=== PATIENT | female | born 1945 | race Caucasian/White ===

== ENCOUNTER 2023-07-26 21:32 | Inpatient (IN) | payer MEDICARE, OTHER ==
[2023-07-26 22:10] LABS: BASOPHILS PERCENT AUTO 0.1 % (0.2-1.2); EOSINOPHILS PERCENT AUTO 0.3 % (0.0-4.0); IMMATURE GRAN ABSOLUTE AUTO 0.01 x10^3/uL (0.00-0.07); LYMPHOCYTES ABSOLUTE AUTO 0.6 x10^3/uL (1.0-4.8); LYMPHOCYTES PERCENT AUTO 6.9 % (25.0-50.0); MEAN CORPUSCULAR HGB CONC 32.5 g/dL (32.0-36.0); MEAN CORPUSCULAR VOLUME 92.2 fL (78.0-93.0); MONOCYTES ABSOLUTE AUTO 0.5 x10^3/uL (0.0-0.8); MONOCYTES PERCENT AUTO 4.8 % (2.0-11.0); NEUTROPHILS ABSOLUTE AUTO 8.2 x10^3/uL (1.8-7.7); NEUTROPHILS PERCENT AUTO 87.8 % (50.0-80.0); PLATELET COUNT,PLT 220 x10^3/uL (130-400); RED BLOOD CELL COUNT 4.34 x10^6/uL (4.00-5.50); WHITE BLOOD CELL COUNT,WBC 9.3 x10^3/uL (4.0-10.0)
[2023-07-26 22:56] LABS: A/G RATIO 0.85; ALANINE AMINOTRANSFERASE,ALT 24 U/L (14-59); ALBUMIN 3.5 g/dL (3.4-5.0); ALKALINE PHOSPHATASE 80 U/L (46-116); ASPARTATE AMNIOTRANSFERASE,AST 19 U/L (15-37); BILIRUBIN TOTAL 1.4 mg/dL (0.2-1.0); BLOOD UREA NITROGEN,BUN 14 mg/dL (7-18); C-REACTIVE PROTEIN 2.95 mg/dL (<=0.50); CARBON DIOXIDE,CO2 27 mmol/L (21-32); CHLORIDE,CL 104 mmol/L (98-107); CREATININE 0.9 mg/dL (0.55-1.02); GLUCOSE RANDOM 154 mg/dL (70-99); POTASSIUM,K 4.2 mmol/L (3.5-5.1); PRO B-TYPE NATRIUR PEPT,BNPPRO 6338 pg/mL (<=450); PROTEIN TOTAL,TP 7.6 g/dL (6.4-8.2); SODIUM,NA 141 mmol/L (136-145)
[2023-07-26 22:59] LABS: ANION GAP 14.2 mmol/L (5-15); ESTIMATED GFR 67 mL/min (>=60)
[2023-07-26] MEDS ORDERED: Diltiazem 50 MG/10 ML SDV IVPUSH ONE (23:06)
[2023-07-26] MEDS ORDERED: Furosemide 40 MG/4 ML VIAL IV ONE (23:07)
[2023-07-26 23:12] LABS: APPEARANCE,URINE CLEAR (CLEAR); BILIRUBIN,URINE NEGATIVE (NEGATIVE); COLOR,URINE YELLOW (YELLOW); GLUCOSE,URINE NEGATIVE (NEGATIVE); KETONES,URINE NEGATIVE (NEGATIVE); LEUKOCYTE ESTERASE,URINE NEGATIVE (NEGATIVE); NITRITE,URINE NEGATIVE (NEGATIVE); OCCULT BLOOD,URINE SMALL (NEGATIVE); PROTEIN,URINE TRACE mg/dL (NEGATIVE); UROBILINOGEN,URINE 0.2 EU/dL (0.2)
[2023-07-26 23:21] LABS: BACTERIA,URINE NOT SEEN /HPF (NOT SEEN); HYALINE CASTS,URINE RARE; MUCUS,URINE NOT SEEN /LPF (NOT SEEN); SQUAMOUS EPITHELIAL CELLS,UR RARE /HPF (NOT SEEN); WBC,URINE 0-5 /HPF (NOT SEEN)
[2023-07-27] MEDS ORDERED: Diltiazem 125 MG in Sodium Chloride 0.9% 100 ML IV SCH (01:00)
[2023-07-27] MEDS ORDERED: Digoxin 500 MCG/2 ML Amp IVPUSH ONE (01:40)
[2023-07-27] MEDS ORDERED: Sodium Chloride 0.9% 10 ML Syringe FLUSH PRN (01:52)
[2023-07-27] MEDS: Albuterol/Ipratropium 3.0-0.5 MG/3 ML Neb Soln NEB SCH ×5 (04:27→19:02)
[2023-07-27] MEDS ORDERED: Sennosides 8.6 MG Tab PO PRN (07:37)
[2023-07-27] MEDS: Budesonide 0.5 MG/2 ML Neb Susp NEB SCH ×2 (08:02→21:50)
[2023-07-27] MEDS ORDERED: Furosemide 20 MG/2 ML VIAL IV ONE (08:30)
[2023-07-27 08:58] LABS: ANION GAP 12.6 mmol/L (5-15); CALCIUM 8.7 mg/dL (8.5-10.1); CREATININE 0.8 mg/dL (0.55-1.02); EST CRCL DRUG DOSING (CG) 50.26 mL/min; POTASSIUM,K 3.6 mmol/L (3.5-5.1)
[2023-07-27] MEDS ORDERED: PREVAGEN 20 MG PO SCH (09:00)
[2023-07-27] MEDS ORDERED: Metoprolol Succinate 50 MG Tab.ER PO SCH (09:00)
[2023-07-27] MEDS: Digoxin 125 MCG Tab PO SCH (09:53)
[2023-07-27] MEDS: Citalopram 20 MG Tab PO SCH (09:54)
[2023-07-27] MEDS: Apixaban 2.5 MG Tab PO SCH ×2 (09:54→21:50)
[2023-07-27] MEDS: metFORMIN 500 MG Tab PO SCH (09:54)
[2023-07-27] MEDS: Cholecalciferol (Vitamin D3) 25 MCG Tab PO SCH (09:55)
[2023-07-27] MEDS: [UNRECOGNIZED DRUG - OTHER] PO SCH (09:56)
[2023-07-27] MEDS: Metoprolol Succinate 50 MG Tab.ER PO SCH (09:57)
[2023-07-27] MEDS: Magnesium Oxide 400 MG Tab PO SCH ×2 (09:57→21:50)
[2023-07-27] MEDS: atorvaSTATin 10 MG Tab PO SCH (09:57)
[2023-07-27] MEDS: glipiZIDE 5 MG Tab PO SCH (09:58)
[2023-07-27] MEDS: Aspirin 81 MG Tab.EC PO SCH (09:58)
[2023-07-27] MEDS ORDERED: SEMAGLUTIDE 0.25 MG/0.4 ML SQ SCH (10:00)
[2023-07-27] MEDS ORDERED: Albuterol/Ipratropium 3.0-0.5 MG/3 ML Neb Soln NEB PRN (19:35)
[2023-07-28] MEDS: Budesonide 0.5 MG/2 ML Neb Susp NEB SCH ×2 (06:13→21:54)
[2023-07-28 07:11] LABS: HEMATOCRIT 38.1 % (33.0-47.0); HEMOGLOBIN 12.5 g/dL (12.0-16.0); MEAN CORPUSCULAR HEMOGLOBIN 30.3 pg (26.0-32.0); MEAN CORPUSCULAR HGB CONC 32.8 g/dL (32.0-36.0); MEAN CORPUSCULAR VOLUME 92.5 fL (78.0-93.0); RED BLOOD CELL COUNT 4.12 x10^6/uL (4.00-5.50)
[2023-07-28 07:25] LABS: CALCIUM 9.3 mg/dL (8.5-10.1); CREATININE 0.8 mg/dL (0.55-1.02); EST CRCL DRUG DOSING (CG) 50.26 mL/min; POTASSIUM,K 3.9 mmol/L (3.5-5.1)
[2023-07-28 07:26] LABS: ANION GAP 12.9 mmol/L (5-15)
[2023-07-28] MEDS ORDERED: Digoxin 500 MCG/2 ML Amp IVPUSH ONE ×3 (08:31→14:24)
[2023-07-28] MEDS ORDERED: Furosemide 20 MG/2 ML VIAL IV ONE (08:38)
[2023-07-28] MEDS ORDERED: Levalbuterol HCl 1.25 MG/3 ML Neb INH ONE (08:38)
[2023-07-28 08:50] LABS: MAGNESIUM 1.9 mg/dL (1.8-2.4)
[2023-07-28] MEDS: Metoprolol Succinate 50 MG Tab.ER PO SCH (09:55)
[2023-07-28] MEDS: Magnesium Oxide 400 MG Tab PO SCH ×2 (09:56→21:00)
[2023-07-28] MEDS: Aspirin 81 MG Tab.EC PO SCH (09:56)
[2023-07-28] MEDS: Apixaban 2.5 MG Tab PO SCH ×2 (09:57→21:00)
[2023-07-28] MEDS: atorvaSTATin 10 MG Tab PO SCH (09:58)
[2023-07-28] MEDS: glipiZIDE 5 MG Tab PO SCH (09:58)
[2023-07-28] MEDS: Digoxin 125 MCG Tab PO SCH (09:59)
[2023-07-28] MEDS: metFORMIN 500 MG Tab PO SCH (09:59)
[2023-07-28] MEDS: Cholecalciferol (Vitamin D3) 25 MCG Tab PO SCH (09:59)
[2023-07-28] MEDS: Citalopram 20 MG Tab PO SCH (10:00)
[2023-07-28] MEDS: [UNRECOGNIZED DRUG - OTHER] PO SCH (10:18)
[2023-07-28] MEDS ORDERED: Spironolactone 25 MG Tab PO SCH (12:15)
[2023-07-28] MEDS ORDERED: Potassium Chloride 10 MEQ Tab.ER PO ONE (12:22)
[2023-07-28] MEDS: Doxycycline Monohydrate 100 MG Cap PO SCH ×2 (13:17→21:00)
[2023-07-28] MEDS ORDERED: Digoxin 500 MCG/2 ML Amp ONE (16:35)
[2023-07-28] MEDS ORDERED: Levalbuterol HCl 1.25 MG/3 ML Neb INH PRN (16:49)
[2023-07-29] MEDS: Budesonide 0.5 MG/2 ML Neb Susp NEB SCH ×2 (06:47→22:31)
[2023-07-29 07:55] LABS: BASOPHILS ABSOLUTE AUTO 0.1 x10^3/uL (0.0-0.2); BASOPHILS PERCENT AUTO 0.8 % (0.2-1.2); EOSINOPHILS ABSOLUTE AUTO 0.4 x10^3/uL (0.0-0.5); EOSINOPHILS PERCENT AUTO 5.5 % (0.0-4.0); HEMATOCRIT 39.9 % (33.0-47.0); HEMOGLOBIN 13.3 g/dL (12.0-16.0); IMMATURE GRAN ABSOLUTE AUTO 0.01 x10^3/uL (0.00-0.07); LYMPHOCYTES ABSOLUTE AUTO 1.3 x10^3/uL (1.0-4.8); LYMPHOCYTES PERCENT AUTO 19.1 % (25.0-50.0); MEAN CORPUSCULAR HEMOGLOBIN 30.2 pg (26.0-32.0); MEAN CORPUSCULAR HGB CONC 33.3 g/dL (32.0-36.0); MEAN CORPUSCULAR VOLUME 90.5 fL (78.0-93.0); MONOCYTES ABSOLUTE AUTO 0.6 x10^3/uL (0.0-0.8); MONOCYTES PERCENT AUTO 9.3 % (2.0-11.0); NEUTROPHILS ABSOLUTE AUTO 4.3 x10^3/uL (1.8-7.7); NEUTROPHILS PERCENT AUTO 65.1 % (50.0-80.0); PLATELET COUNT,PLT 259 x10^3/uL (130-400); RED BLOOD CELL COUNT 4.41 x10^6/uL (4.00-5.50); WHITE BLOOD CELL COUNT,WBC 6.5 x10^3/uL (4.0-10.0)
[2023-07-29 08:12] LABS: A/G RATIO 0.75; BILIRUBIN TOTAL 0.9 mg/dL (0.2-1.0); CALCIUM 9.6 mg/dL (8.5-10.1); CREATININE 0.8 mg/dL (0.55-1.02); EST CRCL DRUG DOSING (CG) 50.26 mL/min; POTASSIUM,K 4.5 mmol/L (3.5-5.1)
[2023-07-29 08:14] LABS: ANION GAP 13.5 mmol/L (5-15)
[2023-07-29] MEDS: metFORMIN 500 MG Tab PO SCH (08:29)
[2023-07-29] MEDS: Cholecalciferol (Vitamin D3) 25 MCG Tab PO SCH (08:29)
[2023-07-29] MEDS: atorvaSTATin 10 MG Tab PO SCH (08:30)
[2023-07-29] MEDS: Apixaban 2.5 MG Tab PO SCH ×2 (08:31→22:20)
[2023-07-29] MEDS: Doxycycline Monohydrate 100 MG Cap PO SCH ×2 (08:31→22:20)
[2023-07-29] MEDS: Metoprolol Succinate 50 MG Tab.ER PO SCH (08:32)
[2023-07-29] MEDS: Digoxin 125 MCG Tab PO SCH (08:33)
[2023-07-29] MEDS: Magnesium Oxide 400 MG Tab PO SCH ×2 (08:34→22:20)
[2023-07-29] MEDS: Aspirin 81 MG Tab.EC PO SCH (08:34)
[2023-07-29] MEDS: Citalopram 20 MG Tab PO SCH (08:34)
[2023-07-29] MEDS: [UNRECOGNIZED DRUG - OTHER] PO SCH (08:35)
[2023-07-29 11:32] LABS: CORONAVIRUS COVID-19 NAA NEGATIVE (NEGATIVE); INFLUENZA A NAA NEGATIVE (NEGATIVE); INFLUENZA B NAA NEGATIVE (NEGATIVE); RESPIRATORY SYNCYTIAL VIR NAA NEGATIVE (NEGATIVE)
[2023-07-29] MEDS ORDERED: Digoxin 500 MCG/2 ML Amp IVPUSH ONE ×2 (14:12→14:45)
[2023-07-29] MEDS: Arformoterol 15 MCG/2 ML Neb Soln NEB SCH ×2 (14:31→22:21)
[2023-07-30] MEDS: Arformoterol 15 MCG/2 ML Neb Soln NEB SCH ×2 (06:05→21:17)
[2023-07-30] MEDS: Budesonide 0.5 MG/2 ML Neb Susp NEB SCH ×2 (06:12→21:17)
[2023-07-30 08:01] LABS: BASOPHILS PERCENT AUTO 0.6 % (0.2-1.2); EOSINOPHILS ABSOLUTE AUTO 0.3 x10^3/uL (0.0-0.5); EOSINOPHILS PERCENT AUTO 4.5 % (0.0-4.0); HEMATOCRIT 39.4 % (33.0-47.0); HEMOGLOBIN 12.9 g/dL (12.0-16.0); IMMATURE GRAN ABSOLUTE AUTO 0.01 x10^3/uL (0.00-0.07); LYMPHOCYTES ABSOLUTE AUTO 1.2 x10^3/uL (1.0-4.8); LYMPHOCYTES PERCENT AUTO 18.3 % (25.0-50.0); MEAN CORPUSCULAR HEMOGLOBIN 29.8 pg (26.0-32.0); MEAN CORPUSCULAR HGB CONC 32.7 g/dL (32.0-36.0); MONOCYTES ABSOLUTE AUTO 0.6 x10^3/uL (0.0-0.8); MONOCYTES PERCENT AUTO 9.5 % (2.0-11.0); NEUTROPHILS ABSOLUTE AUTO 4.4 x10^3/uL (1.8-7.7); NEUTROPHILS PERCENT AUTO 66.9 % (50.0-80.0); PLATELET COUNT,PLT 259 x10^3/uL (130-400); RED BLOOD CELL COUNT 4.33 x10^6/uL (4.00-5.50); WHITE BLOOD CELL COUNT,WBC 6.6 x10^3/uL (4.0-10.0)
[2023-07-30 08:14] LABS: CALCIUM 9.3 mg/dL (8.5-10.1); CREATININE 0.8 mg/dL (0.55-1.02); EST CRCL DRUG DOSING (CG) 50.26 mL/min; POTASSIUM,K 4.3 mmol/L (3.5-5.1)
[2023-07-30 08:15] LABS: ANION GAP 12.3 mmol/L (5-15)
[2023-07-30] MEDS: Metoprolol Succinate 50 MG Tab.ER PO SCH (09:30)
[2023-07-30] MEDS: metFORMIN 500 MG Tab PO SCH (09:31)
[2023-07-30] MEDS: atorvaSTATin 10 MG Tab PO SCH (09:32)
[2023-07-30] MEDS: Magnesium Oxide 400 MG Tab PO SCH ×2 (09:33→21:17)
[2023-07-30] MEDS: Cholecalciferol (Vitamin D3) 25 MCG Tab PO SCH (09:34)
[2023-07-30] MEDS: Doxycycline Monohydrate 100 MG Cap PO SCH ×2 (09:35→21:17)
[2023-07-30] MEDS: Citalopram 20 MG Tab PO SCH (09:36)
[2023-07-30] MEDS: Digoxin 125 MCG Tab PO SCH (09:36)
[2023-07-30] MEDS: Apixaban 2.5 MG Tab PO SCH ×2 (09:36→21:17)
[2023-07-30] MEDS: Aspirin 81 MG Tab.EC PO SCH (09:37)
[2023-07-30] MEDS: [UNRECOGNIZED DRUG - OTHER] PO SCH (09:37)
[2023-07-31] MEDS: Budesonide 0.5 MG/2 ML Neb Susp NEB SCH (06:13)
[2023-07-31] MEDS: Arformoterol 15 MCG/2 ML Neb Soln NEB SCH (06:16)
[2023-07-31] MEDS: Apixaban 2.5 MG Tab PO SCH (09:52)
[2023-07-31] MEDS: atorvaSTATin 10 MG Tab PO SCH (09:52)
[2023-07-31] MEDS: Metoprolol Succinate 50 MG Tab.ER PO SCH (09:53)
[2023-07-31] MEDS: metFORMIN 500 MG Tab PO SCH (09:54)
[2023-07-31] MEDS: Cholecalciferol (Vitamin D3) 25 MCG Tab PO SCH (09:54)
[2023-07-31] MEDS: Doxycycline Monohydrate 100 MG Cap PO SCH (09:55)
[2023-07-31] MEDS: Citalopram 20 MG Tab PO SCH (09:56)
[2023-07-31] MEDS: Aspirin 81 MG Tab.EC PO SCH (09:56)
[2023-07-31] MEDS: Magnesium Oxide 400 MG Tab PO SCH (09:56)
[2023-07-31] MEDS: Digoxin 125 MCG Tab PO SCH (09:57)
[2023-07-31] MEDS: [UNRECOGNIZED DRUG - OTHER] PO SCH (09:59)
== END 2023-07-31 14:00 | disposition home or self-care (01) | DRG 291 ==
LOC: VM.ED 21:32 → VM.MS 23:20
PROVIDERS: ADMIT Nurse Practitioner Family; ATTEND Nurse Practitioner Family
PROC: 0T9B70Z Drainage of Bladder with Drainage Device, Via Natural or Artificial Opening (ICD-10-PCS; principal; 2023-07-26)
DX: I48.91 Unspecified atrial fibrillation (principal); I11.0 Hypertensive heart disease with heart failure; I50.9 Heart failure, unspecified; I50.43 Acute on chronic combined systolic (congestive) and diastolic (congestive) heart failure; J44.1 Chronic obstructive pulmonary disease with (acute) exacerbation; E11.9 Type 2 diabetes mellitus without complications; J96.90 Respiratory failure, unspecified, unspecified whether with hypoxia or hypercapnia; I48.20 Chronic atrial fibrillation, unspecified; Z20.822 Contact with and (suspected) exposure to COVID-19; I42.9 Cardiomyopathy, unspecified; E78.00 Pure hypercholesterolemia, unspecified; G47.33 Obstructive sleep apnea (adult) (pediatric); I35.0 Nonrheumatic aortic (valve) stenosis; F03.B0 Unspecified dementia, moderate, without behavioral disturbance, psychotic disturbance, mood disturbance, and anxiety; I95.9 Hypotension, unspecified; N32.81 Overactive bladder; E11.649 Type 2 diabetes mellitus with hypoglycemia without coma; Z86.73 Personal history of transient ischemic attack (TIA), and cerebral infarction without residual deficits; Z87.891 Personal history of nicotine dependence; Z79.01 Long term (current) use of anticoagulants; Z79.82 Long term (current) use of aspirin; Z79.84 Long term (current) use of oral hypoglycemic drugs; Z79.899 Other long term (current) drug therapy
CPT/HCPCS: 0241U; 36415; 71045; 80048; 80053; 81001; 82947; 83605; 83735; 83880; 84145; 84484; 85025; 85027; 86140; 87040; 93005; 93010; 94640; 94760; 96374; 96375; 97116-GP; 97162-GP; 97165-GO; 97535-GO; 99284; 99285-25; A9270-GY; J1160; J1940; J3490; J7612-GY; J7620-GY